=== PATIENT | female | born 1980 | race Two or more races ===

== ENCOUNTER 2024-07-12 19:37 | Emergency (ER) | payer MEDICAID, OTHER ==
[~2024-07-12] VITALS: Ht 160 cm; Wt 141.8 kg
[2024-07-12 19:55] VITALS: BP 144/85; PULSE 130; RESP 20; TEMP 98.3; O2SAT 97
--- NOTE | 2024-07-12 19:55 | ED.PDOC ---
General HPI Comments 43-year-old female with PMHx PCOS, COPD, HTN, DM and kidney stones presents with a chief complaint of UTI with symptoms of dysuria, hematuria, and urinary frequency. Patient mentions that she was at urgent care for the aforementioned symptoms and was told that she had blood in her urine and an infection & was referred to the ER to rule out kidney stones. Patient denies fever, has had nausea but no vomiting, denies diarrhea or constipation. Patient denies gross hematuria. No other symptoms or modifying factors present at this time. Time Seen by MD: 19:45 Reviewed notes: Medications, Allergies Home Meds Active Scripts Ciprofloxacin Hcl (Cipro) 500 Mg Tab, 1 TAB PO BID for 10 Days, #20 TAB Prov:JAMAL DIAMOND MD 07/12/24 Information Source: Patient Mode of Arrival: Ambulatory Severity: Moderate Inability to void: None Timing: Days Duration: Since onset Has not urinated for: Minutes Prehospital treatment: None Onset: Spontaneous Symptoms: Dysuria, Frequency History of: UTI Location: None associated signs and symptoms: Dysuria, Frequency Past Medical History PAST MEDICAL HISTORY: COPD, DM, HTN Past Medical History (Other): PCOS, kidney stones, cervical cancer in remission Surgical History: Cholecystectomy Surgical History (Other): Lithotripsy, cryotherapy for cervical cancer ORNAMENTAL METAL WORKER History: No Pertinent ORNAMENTAL METAL WORKER History Family History Family History: Reviewed,noncontributory to illness Social History Smoker: Cigarettes Alcohol: Denies ETOH Use Drugs: Denies Drug Use Lives In: Home Constitutional: denies: chills, diaphoresis, fatigue, fever, malaise, sweats, weakness, others EENTM: denies: blurred vision, double vision, ear bleeding, ear discharge, ear drainage, ear pain, ear ringing, eye pain, eye redness, hearing loss, mouth pain, mouth swelling, nasal discharge, nose bleeding, nose congestion, nose pain, photophobia, tearing, throat pain, throat swelling, voice changes, others Respiratory: denies: cough, hemoptysis, orthopnea, SOB at rest, shortness of breath, SOB with excertion, stridor, wheezing, others Cardiovascular: denies: chest pain, dizzy spells, diaphoresis, Dyspnea on exertion, edema, irregular heart beat, left arm pain, lightheadedness, palpitations, PND, syncope, others Gastrointestinal: denies: abdomen distended, abdominal pain, blood streaked bowels, constipated, diarrhea, dysphagia, difficulty swallowing, hematemesis, melena, nausea, poor appetite, poor fluid intake, rectal bleeding, rectal pain, vomiting, others Genitourinary: reports: dysuria, frequency, hematuria; denies: abnormal vagina bleeding, burning, dyspareunia, flank pain, incontinence, pain, , vagina discharge, urgency, others Neurological: denies: dizziness, fainting, headache, left sided numbness, left sided weakness, numbness, paresthesia, pre-existing deficit, right sided numbness, right sided weakness, seizure, speech problems, tingling, tremors, weakness, others Musculoskeletal: denies: back pain, gout, joint pain, joint swelling, muscle pain, muscle stiffness, neck pain, others Integumetry: denies: bruises, change in color, change in hair/nails, dryness, laceration, lesions, lumps, rash, wounds, others Allergic/Immunocompromised: denies: Difficulty Healing, Frequent Infections, Hives, Itching, others Hematologic/Lymphatic: denies: anemia, blood clots, easy bleeding, easy bruising, swollen glands, others Endocrine: denies: excessive hunger, excessive sweating, excessive thirst, excessive urination, flushing, intolerance to cold, intolerance to heat, unexplained weight gain, unexplained weight loss, others Psychiatric: denies: anxiety, bipolar disorder, depression, hopeless, panic disorder, schizophrenia, sleepless, suicidal, others All Other Systems: Reviewed and Negative Physical Exam General Appearance: Mild Distress, Obese HEENT: Other (Pupils and face symmetric. Moist mucous membranes.) Neck: Full Range of Motion, Normal Inspection Respiratory: Lungs Clear, No Accessory Muscle Use, No Respiratory Distress, Normal Breath Sounds Cardiovascular: No Edema, No JVD, Regular Rate/Rhythm Breast Exam: Deferred Gastrointestinal: Soft, Suprapubic, Tenderness Genitalia: Deferred Pelvic: Deferred Rectal: Deferred Extremities: Normal inspection, Normal range of motion, Non-tender, No pedal edema Neurologic: Alert (Oriented x4), Normal Affect, Normal Mood, Other (Ambulatory) Cerebellar Function: NOT DONE Reflexes: NOT DONE Skin: Dry, Normal Color, Warm Lymphatic: NOT DONE Was a procedure done? Was a procedure done?: No Differential Diagnosis Kidney stone (Female): Appendicitis, Ectopic , Pyelonephritis, Urinary obstruction, Urolithiasis Kidney stone (Male): N/A Penile/Scrotal: N/A Urinary Problem (Male): N/A Urinary Problem (Female): Impaction, PID X-Ray, Labs, Meds, VS Vital Signs Date Time Temp Pulse Resp B/P (MAP) Pulse Ox O2 Delivery O2 Flow Rate FiO2 07/12/24 19:55 98.3 130 20 144/85 (104) 97 98.3 Lab Test 07/12/24 20:36 07/12/24 19:56 Range/Units White Blood Count 11.6 H 4.4-10.8 10^3/uL Red Blood Count 4.83 4.0-5.20 10^6/uL Hemoglobin 13.5 12.2-16.2 g/dL Hematocrit 42.6 36.0-46.0 % Mean Corpuscular Volume 88.2 80.0-100.0 fL Mean Corpuscular Hemoglobin 27.9 L 28.0-32.0 pg Mean Corpuscular Hemoglobin Concent 31.6 L 32.0-36.0 g/dL Red Cell Distribution Width 17.9 H 11.8-14.3 % Platelet Count 302 140-450 10^3/uL Mean Platelet Volume 7.0 6.9-10.8 fL Neutrophils (%) (Auto) 66.2 37.0-80.0 % Lymphocytes (%) (Auto) 27.7 10.0-50.0 % Monocytes (%) (Auto) 4.7 0.0-12.0 % Eosinophils (%) (Auto) 1.0 0.0-7.0 % Basophils (%) (Auto) 0.4 0.0-2.0 % Neutrophils # (Auto) 7.7 1.6-8.6 10 ^3/uL Lymphocytes # (Auto) 3.2 0.4-5.4 10 ^3/uL Monocytes # (Auto) 0.5 0-1.3 10 ^3/uL Eosinophils # (Auto) 0.1 0-0.8 10 ^3/uL Basophils # (Auto) 0 0-0.2 10 ^3/uL Nucleated Red Blood Cells 0.1 % Sodium Level 138 136-145 mmol/L Potassium Level 3.7 3.5-5.1 mmol/L Chloride Level 108 H 98-107 mmol/L Carbon Dioxide Level 20 20-31 mmol/L Anion Gap 10 5-15 Blood Urea Nitrogen 8 L 9-23 mg/dL Creatinine 0.82 0.550-1.02 mg/dL Glomerular Filtration Rate Calc 91 >90 mL/min BUN/Creatinine Ratio 9.8 L 10.0-20.0 Serum Glucose 93 74-106 mg/dL Calcium Level 10.1 8.7-10.4 mg/dL Urine Color Light-orange Yellow Urine Clarity Ex.turbid Clear Urine pH 6.0 5.0-9.0 Urine Specific [place] 1.030 1.001-1.035 Urine Protein 2+ H Negative Urine Ketones Trace Negative Urine Blood 1+ H Negative /uL Urine Nitrite Negative Negative Urine Bilirubin Negative Negative Urine Urobilinogen 2 H Negative mg/dL Urine Leukocyte Esterase 3+ Negative /uL Urine RBC 34 0 - 4 /hpf Urine Microscopic WBC 410 H 0-5 /HPF Urine Squamous Epithelial Cells Many <5 /hpf Urine Bacteria Few H None Seen /hpf Urine Hyaline Casts Few 0 - 2 /lpf Urine Mucus Few None Seen Urine Yeast (Budding) Few None Seen /hpf Urine Glucose Trace Normal mg/dL Urine Test Negative Negative X-Ray, Labs, Meds, VS Comment 43-year-old female with a history of hypertension, diabetes, COPD, PCOS and kidney stones complaining of urinary frequency, urgency and dysuria Vitals remarkable for initial heart rate of 130 Exam remarkable for suprapubic tenderness to palpation and tachycardia Rhythm strip independently interpreted by me: Sinus tach, rate 130, no ectopy. CT abdomen and pelvis CBC remarkable for WBC 11.6, basic metabolic panel unremarkable, UA consistent with UTI, urine negative The following was ordered for the patient: 2 L 0.9 normal saline IV bolus, morphine 4 mg IV, Zofran 4 mg IV At 10:21 p.m. I was advised the patient had left against medical advice, stating she did not want any IV medications and did not want to wait in the ED any longer. The patient left prior to my ability to re-evaluate the patient. Time of 1ST Reevaluation: 20:15 Reevaluation 1ST: Unchanged Patient Education/Counseling: Diagnosis, Treatment Family Education/Counseling: No Family Present Departure 1 Departure Time of Disposition: 22:22 Impression: Primary Impression: UTI (urinary tract infection) Qualified Codes: N39.0 - Urinary tract infection, site not specified; R31.9 - Hematuria, unspecified Disposition: LEFT AGAINST MEDICAL ADVICE Condition: Fair e-Prescriptions Ciprofloxacin Hcl (Cipro) 500 Mg Tab 1 TAB PO BID for 10 Days, #20 TAB Prov: JAMAL DIAMOND MD 07/12/24 Discharged With: Self Critical Care Note Critical Care Time?: No Stability Stability form required: No Heart Score Heart Score: Heart Score Response (Comments) Value History N/A 0 EKG N/A 0 Age N/A 0 Risk Factors N/A 0 Troponin N/A 0 Total 0 I personally scribed for JAMAL DIAMOND MD ([email or web address]) on 07/12/24 at 19:55. Electronically submitted by Clint Carmona ([email or web address]). JAMAL DIAMOND MD Jul 12, 2024 19:55
[2024-07-12] MEDS ORDERED: ONDANSETRON HCL 4 MG/2 ML VIAL IV ONE (20:00)
[2024-07-12] MEDS ORDERED: SODIUM CHLORIDE 0.9% 2,000 ML IV ONE (20:00)
[2024-07-12] MEDS ORDERED: MORPHINE SULFATE 4 MG/ML SYR/VIAL IV ONE (20:00)
[2024-07-12 20:54] LABS: Basophils # (auto) 0 10 ^3/uL (0-0.2); Basophils % (auto) 0.4 % (0.0-2.0); Eosinophils # (auto) 0.1 10 ^3/uL (0-0.8); Hematocrit 42.6 % (36.0-46.0); Hemoglobin 13.5 g/dL (12.2-16.2); Lymphocytes # (auto) 3.2 10 ^3/uL (0.4-5.4); Lymphocytes % (auto) 27.7 % (10.0-50.0); Mean Corpuscular Hemoglobin 27.9 pg (28.0-32.0); Mean Corpuscular Hgb Conc. 31.6 g/dL (32.0-36.0); Mean Corpuscular Volume 88.2 fL (80.0-100.0); Monocytes # (auto) 0.5 10 ^3/uL (0-1.3); Monocytes % (auto) 4.7 % (0.0-12.0); Neutrophils # (auto) 7.7 10 ^3/uL (1.6-8.6); Neutrophils % (auto) 66.2 % (37.0-80.0); Nucleated Red Blood Cells % 0.1 %; Platelet Count (auto) 302 10^3/uL (140-450); Red Blood Cells 4.83 10^6/uL (4.0-5.20); Red Cell Distribution Width 17.9 % (11.8-14.3); White Blood Cell 11.6 10^3/uL (4.4-10.8)
[2024-07-12 20:59] LABS: Anion Gap 10 (5-15); Carbon Dioxide 20 mmol/L (20-31); Potassium 3.7 mmol/L (3.5-5.1); Sodium 138 mmol/L (136-145)
[2024-07-12 21:00] LABS: Calcium 10.1 mg/dL (8.7-10.4)
[2024-07-12 21:05] LABS: BUN/Creatinine Ratio 9.8 (10.0-20.0); Glucose 93 mg/dL (74-106)
[2024-07-12 21:34] LABS: Blood Urea Nitrogen 8 mg/dL (9-23); Chloride 108 mmol/L (98-107)
[2024-07-12 21:36] LABS: Urine Bacteria FEW /hpf (None Seen); Urine Blood 1+ /uL (Negative); Urine Budding Yeast FEW /hpf (None Seen); Urine Clarity Ex.Turbid (Clear); Urine Color Light-Orange (Yellow); Urine Hyaline Cast FEW /lpf (0 - 2); Urine Mucus FEW (None Seen); Urine Protein, UAD 2+ (Negative); Urine Squamous Epithelial Cell MANY /hpf (<5); Urine Urobilinogen 2 mg/dL (Negative); Urine WBC 410 /HPF (0-5)
[2024-07-12] MEDS ORDERED: CIPR-173 PO (22:24)
--- NOTE | 2024-07-12 22:44 | DVH ---
Exam: CT CT AB PEL WO CON-NO ORAL OR IV History: low abd and flank pain r/o stone Comparison Study: None Technique: Multidetector spiral CT of the abdomen was performed from lung bases to pubic symphysis. I maging was performed without IV contrast. Axial, coronal and sagittal multiplanar reformats were obta ined from the axial data set by the technologist. Radiation Dose : 1. Abdomen/Pelvis: CTDIvol 25.34 mGy, DLP 1533.57 mGy*cm. Findings: Evaluation of solid organs is limited due to lack of intravenous contrast use. Lung Bases: No acute or significant lung base finding. Normal heart size. No pleural or pericardial effusion. Liver: The liver is normal in size. No focal lesions. Gallbladder and Biliary Tree: Gallbladder is surgically absent. Spleen: Unremarkable Pancreas: The pancreas is grossly normal in appearance. Adrenal Glands: Unremarkable Kidneys: There is a 7 mm nonobstructing right renal stone. Bladder: Grossly unremarkable for degree of distention. Bowel: The stomach is grossly normal in appearance. Small bowel and colon are normal in caliber and d istribution. Normal appendix is visualized in the right lower quadrant without findings of appendicit is. Moderate fecal retention in the colon. Ascites: Absent Lymphadenopathy: No mesenteric, retroperitoneal or periportal lymphadenopathy. Abdominal Wall and Mesentery: Unremarkable. Vasculature: The visualized abdominal aorta is normal in size and caliber. Evaluation of abdominal a nd pelvic vessels is limited due to lack of intravenous contrast. Pelvic Organs: Mildly bulky appearing uterus. Musculoskeletal: No aggressive focal bony lesions, acute fractures or dislocation. IMPRESSION: Mildly bulky appearing uterus. Consider ultrasound for further evaluation of fibroids. Moderate fecal retention throughout the colon. 7 mm nonobstructing right renal stone END IMPRESSION:
[2024-07-13] MEDS ORDERED: ZOFR4T PO (15:04)
== END 2024-07-12 22:02 | disposition left against medical advice (07) ==
LOC: ER 19:42
DX: N39.0 Urinary tract infection, site not specified (principal); F17.210 Nicotine dependence, cigarettes, uncomplicated; E11.9 Type 2 diabetes mellitus without complications; I10 Essential (primary) hypertension; J44.9 Chronic obstructive pulmonary disease, unspecified; Z90.49 Acquired absence of other specified parts of digestive tract; Z79.899 Other long term (current) drug therapy; Z87.442 Personal history of urinary calculi
CPT/HCPCS: 36415; 74176; 80048; 81001; 81025; 85025; 87040

== ENCOUNTER 2024-07-13 14:53 | Emergency (ER) | payer MEDICAID ==
[~2024-07-13] VITALS: Ht 160 cm; Wt 142.3 kg
[~2024-07-13 14:53] MED LIST: CIPR-173 PO
[2024-07-13] MEDS ORDERED: ZOFR4T PO (15:04)
--- NOTE | 2024-07-13 15:16 | ED.PDOC ---
History of Present Illness HPI Comments 43-year-old female with a history of PCOS, COPD, hypertension, diabetes and GERD returning today after leaving AMA yesterday. Patient was diagnosed with a urinary tract infection yesterday, however left against medical advice. IV antibiotics, fluids, antiemetics and pain medication were ordered, however the patient refused these treatments, stating she is definitely afraid of needles and often will lose consciousness during blood draws and/or IV start attempts. She left AMA prior to my ability to explain recommended treatment and follow-up. She returns today with same symptoms of suprapubic pain, dysuria, and nausea. She denies any new changes. Time Seen by MD: 14:59 Allergies: Coded Allergies: Ibuprofen (Verified Allergy, Unknown, 07/13/24) Penicillins (Verified Allergy, Unknown, 07/13/24) Sulfa Antibiotics (Verified Allergy, Unknown, 07/13/24) Home Meds Active Scripts Ondansetron Odt 4MG Tab (ZOFRAN PO) 4 Mg Tb, 4 MG PO TID PRN, #30 TAB ODT TAB-DISSOLVE IN MOUTH, THEN SWALLOW Prov:JAMAL DIAMOND MD 07/13/24 Ciprofloxacin Hcl (Cipro) 500 Mg Tab, 1 TAB PO BID for 10 Days, #20 TAB Prov:JAMAL DIAMOND MD 07/12/24 Past Medical History PAST MEDICAL HISTORY: COPD, DM, GERD, HTN Past Medical History (Other): PCOS, kidney stones, morbid obesity Surgical History: Cholecystectomy STONE CLEANER History: No Pertinent STONE CLEANER History Family History Family History: Reviewed,noncontributory to illness Social History Smoker: Cigarettes Alcohol: Denies ETOH Use Drugs: Denies Drug Use Lives In: Home All Other Systems: Reviewed and Negative (Comprehensive systems review obtained and negative except for what is stated in the HPI.) Physical Exam General Appearance: No Apparent Distress, Obese HEENT: Other (Pupils and face symmetric. Moist mucous membranes.) Neck: Full Range of Motion, Normal Inspection Respiratory: Lungs Clear, No Accessory Muscle Use, No Respiratory Distress, Normal Breath Sounds Cardiovascular: No Edema, No JVD, Regular Rate/Rhythm Breast Exam: Deferred Gastrointestinal: Soft, Suprapubic, Tenderness Genitalia: Deferred Pelvic: Deferred Rectal: Deferred Extremities: Normal inspection, Normal range of motion, Non-tender, No pedal edema Neurologic: Alert (Oriented x4), Normal Affect, Normal Mood, NOT DONE (Ambulatory) Cerebellar Function: NOT DONE Reflexes: NOT DONE Skin: Dry, Normal Color, Warm Lymphatic: NOT DONE Was a procedure done? Was a procedure done?: No Differential Dx Considerations may include: UTI, pyelonephritis, kidney stone, among others X-Ray, Labs, Meds, VS Vital Signs Date Time Temp Pulse Resp B/P (MAP) Pulse Ox O2 Delivery O2 Flow Rate FiO2 07/13/24 16:53 Room Air* 0 21 07/13/24 16:53 97.5 100 16 153/105 (121) 97 97.5 07/13/24 14:58 97.2 134 20 152/95 (114) 95 97.2 Current Medications Medications (Trade) Dose Ordered Sig/Fredo Route Start Time Stop Time Status Last Admin Ondansetron HCl (Zofran Po) 8 mg ONCE ONCE PO 07/13/24 15:15 07/13/24 15:16 DC 07/13/24 16:51 X-Ray, Labs, Meds, VS Comment 43-year-old female with a history of current UTI, PCOS, hypertension, diabetes, COPD and kidney stones returning today after leaving AMA yesterday. Vitals remarkable for initial heart rate 134, BP 152/95 Exam remarkable for suprapubic tenderness to palpation Rhythm strip independently interpreted by me: Sinus tach , rate 130 , no ectopy Labs yesterday were pertinent for UTI Yesterday's CT abdomen and pelvis: [place] [address] Ph: [phone] DIAGNOSTIC IMAGING Diagnostic Imaging Report : [id number] Signed PATIENT: CATHY WRIGHTACCT: [id number] UNIT: [id number] : 1980 LOC: ER ROOM / BED: / AGE / SEX: 43 / F ADM STATUS: REG ER SERVICE 49 ORDERING PHYSICIAN: JAMAL DIAMOND MD PROCEDURE(s): ABPL - CT AB PEL WO CON-NO ORAL OR IV REASON: low abd and flank pain r/o stone ORDER NUMBER(s): [id number], ACCESSION NUMBER(s): [id number] Exam: CT CT AB PEL WO CON-NO ORAL OR IV History: low abd and flank pain r/o stone Comparison Study: None Technique: Multidetector spiral CT of the abdomen was performed from lung bases to pubic symphysis. Imaging was performed without IV contrast. Axial, coronal and sagittal multiplanar reformats were obtained from the axial data set by the technologist. Radiation Dose : 1. Abdomen/Pelvis: CTDIvol 25.34 mGy, DLP 1533.57 mGy*cm. Findings: Evaluation of solid organs is limited due to lack of intravenous contrast use. Lung Bases: No acute or significant lung base finding. Normal heart size. No pleural or pericardial effusion. Liver: The liver is normal in size. No focal lesions. Gallbladder and Biliary Tree: Gallbladder is surgically absent. Spleen: Unremarkable Pancreas: The pancreas is grossly normal in appearance. Adrenal Glands: Unremarkable Kidneys: There is a 7 mm nonobstructing right renal stone. Bladder: Grossly unremarkable for degree of distention. Bowel: The stomach is grossly normal in appearance. Small bowel and colon are normal in caliber and distribution. Normal appendix is visualized in the right lower quadrant without findings of appendicitis. Moderate fecal retention in the colon. Ascites: Absent Lymphadenopathy: No mesenteric, retroperitoneal or periportal lymphadenopathy. Abdominal Wall and Mesentery: Unremarkable. Vasculature: The visualized abdominal aorta is normal in size and caliber. Evaluation of abdominal and pelvic vessels is limited due to lack of intravenous contrast. Pelvic Organs: Mildly bulky appearing uterus. Musculoskeletal: No aggressive focal bony lesions, acute fractures or dislocation. IMPRESSION: Mildly bulky appearing uterus. Consider ultrasound for further evaluation of fibroids. Moderate fecal retention throughout the colon. 7 mm nonobstructing right renal stone END IMPRESSION: ATED BY: JORDAN SMITH DO DICTATED DATE/TIME: 07/12/24 4434 Again I recommended that the patient stay for IV fluids, antibiotics, antiemetics and pain medication. She adamantly refused this treatment, stating she will pass out if we attempt to start an IV. I advised the patient that oral antibiotics may not fully treat the UTI since she currently also has a kidney stone. She continued to refuse IV medication administration. She stated she would prefer to go home with a prescription for oral antibiotics and antiemetics and would closely follow-up with her primary physician for referral back to Urology for evaluation of the kidney stone. Patient was treated with Zofran ODT in the ER. She was alert, oriented x4, ambulatory and capable of making informed decisions at the time she decided to decline my recommended treatment. She does not appear septic at this time. Initial tachycardia has resolved, and was likely due to discomfort and anxiety. She does appear stable for discharge with close outpatient follow-up at this time. Rx Cipro, Zofran ODT Time of 1ST Reevaluation: 15:15 Reevaluation 1ST: Unchanged Patient Education/Counseling: Diagnosis, Treatment, Need For Follow Up Family Education/Counseling: No Family Present Departure 1 Departure Time of Disposition: 15:15 Impression: Primary Impression: UTI (urinary tract infection) Qualified Codes: N39.0 - Urinary tract infection, site not specified; R31.9 - Hematuria, unspecified Additional Impression: Kidney stone on right side Disposition: HOME / SELF CARE / HOMELESS Condition: Fair Additional Instructions: Your tests yesterday showed a urinary tract infection. Your CT scan showed a 7 mm stone in the right kidney. I have enclosed the report below. We usually administer IV antibiotics and IV fluids for people with urinary tract infections and kidney stones. You have declined this treatment. I have prescribed oral antibiotics and nausea medication. Follow-up with your primary doctor as soon as possible for referral to an urologist for further evaluation of your stone. Return to ER for persistent or worsening symptoms. [place] [address] Ph: [phone] DIAGNOSTIC IMAGING Diagnostic Imaging Report : [id number] Signed PATIENT: CATHY WRIGHT ACCT: [id number] UNIT: [id number] : 1980 LOC: ER ROOM / BED: / AGE / SEX: 43 / F ADM STATUS: REG ER SERVICE 1950 ORDERING PHYSICIAN: JAMAL DIAMOND MD PROCEDURE(s): ABPL - CT AB PEL WO CON-NO ORAL OR IV REASON: low abd and flank pain r/o stone ORDER NUMBER(s): [id number], ACCESSION NUMBER(s): [id number] Exam: CT CT AB PEL WO CON-NO ORAL OR IV History: low abd and flank pain r/o stone Comparison Study: None Technique: Multidetector spiral CT of the abdomen was performed from lung bases to pubic symphysis. Imaging was performed without IV contrast. Axial, coronal and sagittal multiplanar reformats were obtained from the axial data set by the technologist. Radiation Dose : 1. Abdomen/Pelvis: CTDIvol 25.34 mGy, DLP 1533.57 mGy*cm. Findings: Evaluation of solid organs is limited due to lack of intravenous contrast use. Lung Bases: No acute or significant lung base finding. Normal heart size. No pleural or pericardial effusion. Liver: The liver is normal in size. No focal lesions. Gallbladder and Biliary Tree: Gallbladder is surgically absent. Spleen: Unremarkable Pancreas: The pancreas is grossly normal in appearance. Adrenal Glands: Unremarkable Kidneys: There is a 7 mm nonobstructing right renal stone. Bladder: Grossly unremarkable for degree of distention. Bowel: The stomach is grossly normal in appearance. Small bowel and colon are normal in caliber and distribution. Normal appendix is visualized in the right lower quadrant without findings of appendicitis. Moderate fecal retention in the colon. Ascites: Absent Lymphadenopathy: No mesenteric, retroperitoneal or periportal lymphadenopathy. Abdominal Wall and Mesentery: Unremarkable. Vasculature: The visualized abdominal aorta is normal in size and caliber. Evaluation of abdominal and pelvic vessels is limited due to lack of intravenous contrast. Pelvic Organs: Mildly bulky appearing uterus. Musculoskeletal: No aggressive focal bony lesions, acute fractures or dislocation. IMPRESSION: Mildly bulky appearing uterus. Consider ultrasound for further evaluation of fibroids. Moderate fecal retention throughout the colon. 7 mm nonobstructing right renal stone END IMPRESSION: ATED BY: JORDAN SMITH DO DICTATED DATE/TIME: 07/12/24 2241 e-Prescriptions Ondansetron Odt 4MG Tab (ZOFRAN PO) 4 Mg Tb 4 MG PO TID PRN, #30 TAB ODT TAB-DISSOLVE IN MOUTH, THEN SWALLOW Prov: JAMAL DIAMOND MD 07/13/24 Discharged With: Self Critical Care Note Critical Care Time?: No Stability Stability form required: No Heart Score Heart Score: Heart Score Response (Comments) Value History N/A 0 EKG N/A 0 Age N/A 0 Risk Factors N/A 0 Troponin N/A 0 Total 0 JAMAL DIAMOND MD Jul 13, 2024 15:16
[2024-07-13] MEDS: ONDANSETRON ODT 4 MG TAB PO ONE (16:51)
[2024-07-13 16:53] VITALS: BP 153/105; PULSE 100; RESP 16; TEMP 97.5; O2SAT 97
== END 2024-07-13 16:52 | disposition home or self-care (01) ==
LOC: ER 14:56
DX: N39.0 Urinary tract infection, site not specified (principal); N20.0 Calculus of kidney; I10 Essential (primary) hypertension; J44.9 Chronic obstructive pulmonary disease, unspecified; E11.9 Type 2 diabetes mellitus without complications; E28.2 Polycystic ovarian syndrome; F17.210 Nicotine dependence, cigarettes, uncomplicated; Z87.442 Personal history of urinary calculi; Z90.49 Acquired absence of other specified parts of digestive tract; Z88.0 Allergy status to penicillin; Z88.2 Allergy status to sulfonamides; Z88.6 Allergy status to analgesic agent
CPT/HCPCS: 99283; Q0162